=== PATIENT | female | born 1995 | race Two or more races ===

== ENCOUNTER 2019-08-29 17:45 | Emergency (ER) | payer BC ==
--- NOTE | 2019-08-29 18:04 | ER Document Report ---
ED Medical Screen (RME) - General Chief Complaint: Suicidal Ideation Stated Complaint: SUICIDAL IDEATION Time Seen by Provider: 08/29/19 18:01 Mode of Arrival: Ambulatory Information source: Patient Notes: 24-year-old female presented to ED for complaint of suicidal ideation for about the last year more so in the last 2 weeks. She states she went to her primary care doctor today who called mobile crisis. Mobile crisis called Jennifer Thornton and they told her that she needed to come to the emergency room voluntarily or they would cover it and bring her to the hospital. She states that she agreed to come in here for an assessment but she has not gone to stay after assessment. She states she does not want to take her pants off because she is on her menstrual cycle right now. She is very and upset anxious and agitated at this time. She states she does not smoke she does occasionally drink and she does not use any street drugs. She states that she has a plan but she has not gone to tell anybody what the plan is. She states she does have mental health diagnoses but she is not going to discuss them right now. She states she does live with her family and she does not work at this time. I have greeted and performed a rapid initial assessment of this patient. A comprehensive ED assessment and evaluation of the patient, analysis of test results and completion of medical decision making process will be conducted by an additional ED providers. Physical Exam - Vital signs Vitals: Temp Pulse Resp BP Pulse Ox 98.0 F 88 16 123/82 95 08/29/19 17:53 08/29/19 17:53 08/29/19 17:53 08/29/19 17:53 08/29/19 17:53 Course - Vital Signs Vital signs: Temp Pulse Resp BP Pulse Ox 98.0 F 88 16 123/82 95 08/29/19 17:53 08/29/19 17:53 08/29/19 17:53 08/29/19 17:53 08/29/19 17:53
[2019-08-29 19:04] LABS: ABSOLUTE LYMPHOCYTES (AUTO) 2.1 10^3/uL (0.5-4.7); ABSOLUTE MONOCYTES (AUTO) 0.4 10^3/uL (0.1-1.4); ABSOLUTE NEUT (AUTO) 5.4 10^3/uL (1.7-8.2); BASOPHILS % (AUTO) 0.4 % (0-2); EOSINOPHILS % (AUTO) 0.5 % (0-6); HEMATOCRIT 43.1 % (36.0-47.0); LYMPHOCYTES % (AUTO) 26.6 % (13-45); MEAN CORPUSCULAR HEMOGLOBIN 30.1 pg (27.0-33.4); MEAN CORPUSCULAR HGB CONC 34.8 g/dL (32.0-36.0); MEAN CORPUSCULAR VOLUME 87 fl (80-97); MONOCYTES % (AUTO) 5.3 % (3-13); PLATELET COUNT 276 10^3/uL (150-450); RED BLOOD COUNT 4.99 10^6/uL (3.72-5.28); RED CELL DISTRIBUTION WIDTH 13.1 % (11.5-14.0); SEGMENTED NEUTROPHILS % (AUTO) 67.2 % (42-78); TOTAL CELLS COUNTED % (AUTO) 100 %; WHITE BLOOD COUNT 8.1 10^3/uL (4.0-10.5)
[2019-08-29 19:26] LABS: ALBUMIN 4.8 g/dL (3.5-5.0); ALKALINE PHOSPHATASE 76 U/L (38-126); ANION GAP 9 (5-19); ASPARTATE AMINO TRANSFERASE 21 U/L (14-36); BILIRUBIN,TOTAL 0.5 mg/dL (0.2-1.3); BLOOD UREA NITROGEN 11 mg/dL (7-20); CALCIUM 9.5 mg/dL (8.4-10.2); CARBON DIOXIDE 25 mmol/L (22-30); CHLORIDE 104 mmol/L (98-107); GLUCOSE 92 mg/dL (75-110); TOTAL PROTEIN 7.7 g/dL (6.3-8.2)
[2019-08-29 19:27] LABS: APPEARANCE,URINE CLOUDY; BILIRUBIN,URINE NEGATIVE (NEGATIVE); COLOR,URINE YELLOW; GLUCOSE, URINE NEGATIVE (NEGATIVE); KETONES,URINE NEGATIVE (NEGATIVE); LEUKOCYTE ESTERASE,URINE TRACE (NEGATIVE); NITRITE,URINE NEGATIVE (NEGATIVE); PROTEIN,URINE 30 mg/dL (NEGATIVE)
[2019-08-29 19:27] LABS: ACETAMINOPHEN < 10 ug/mL (10-30); ALCOHOL < 10 mg/dL (NONE DETECTED); SALICYLATE < 1.0 mg/dL (2.0-20.0)
[2019-08-29 19:35] LABS: URINE AMPHETAMINES SCREEN NEGATIVE; URINE BARBITURATES SCREEN NEGATIVE; URINE BENZODIAZEPINES SCREEN NEGATIVE; URINE COCAINE SCREEN NEGATIVE; URINE MARIJUANA (THC) SCREEN NEGATIVE; URINE METHADONE SCREEN NEGATIVE; URINE PHENCYCLIDINE SCREEN NEGATIVE
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
[2019-08-29] MEDS ORDERED: ONDANSETRON 4 MG TAB.RAPDIS PO ONE (22:13)
[2019-08-29] MEDS: VENLAFAXINE HCL 37.5 MG CAP.SR.24H PO SCH (22:29)
[2019-08-29] MEDS: CHLORPROMAZINE HCL 50 MG TABLET PO SCH (22:29)
[2019-08-29] MEDS: OLANZAPINE 2.5 MG TABLET PO SCH (22:29)
[2019-08-29] MEDS: BENZTROPINE MESYLATE 1 MG TABLET PO SCH (22:30)
--- NOTE | 2019-08-29 22:47 | EKG REPORT ---
SEVERITY:- NORMAL ECG - SINUS RHYTHM : Confirmed by: Otis Saini 29-Aug-2019 22:46:14
--- NOTE | 2019-08-30 00:16 | ER Document Report ---
ED Psych Disorder / Suicide - General Chief Complaint: Psych Problem Stated Complaint: SUICIDAL IDEATION Time Seen by Provider: 08/29/19 18:01 Primary Care Provider: ZEHRA GARCIA NP-C [Primary Care Provider] - Follow up as needed Mode of Arrival: Ambulatory Notes: Patient is a 24-year-old female who comes in for suicidal ideation. Patient does not want to tell me what her plan was. Patient is currently suicidal. Was told to come in by mobile crisis. Patient is upset because she wants to do her schoolwork but states that she is indeed still suicidal. Has a history of depression and anxiety. She has never been admitted to an inpatient psychiatric unit. She is not on anything today to hurt herself. Patient states that she began feeling this way 2 weeks ago when her now ex-fianc broke up with her. - HPI Patient complains to provider of: Suicidal ideation, Suicidal plan Quality of pain: No pain Severity: None Suicide Risk Factors: Lack of social support Situational problems related to: Significant other Suicide Attempt Method: denies: Drowning, Hanging, Motor Vehicle, Overdose, Shooting, Stabbing/Cutting, Train, Other Overdose of: No: Acetominophen, Alcohol, Anticholinergic, Anti-depressants, Benzodiazepine, Salicylate, Tricyclic Antidepressant, Other Normal mood: No Associated symptoms: Agitated, Angry - Related Data Allergies/Adverse Reactions: adhesive Allergy (Verified 08/29/19 18:07) alovera Adverse Reaction (Uncoded 08/29/19 18:07) Home Medications: Effexor 150 mg daily. Albuteral inhaler. flovent Past Medical History - General Information source: Patient - Social History Smoking Status: Never Smoker Chew tobacco use (# tins/day): No Frequency of alcohol use: None Drug Abuse: None Family History: Reviewed & Not Pertinent Patient has suicidal ideation: No Patient has homicidal ideation: No Psychiatric Medical History: Reports: Hx Anxiety, Hx Depression Review of Systems - Review of Systems Constitutional: No symptoms reported EENT: No symptoms reported Cardiovascular: No symptoms reported Respiratory: No symptoms reported Gastrointestinal: No symptoms reported Genitourinary: No symptoms reported Female Genitourinary: No symptoms reported Musculoskeletal: No symptoms reported Skin: No symptoms reported Hematologic/Lymphatic: No symptoms reported Neurological/Psychological: See HPI Physical Exam - Vital signs Vitals: Temp Pulse Resp BP Pulse Ox 98.0 F 88 16 123/82 95 08/29/19 17:53 08/29/19 17:53 08/29/19 17:53 08/29/19 17:53 08/29/19 17:53 Interpretation: Normal - General General appearance: Appears well, Alert - HEENT Head: Normocephalic, Atraumatic Eyes: Normal Pupils: PERRL - Respiratory Respiratory status: No respiratory distress Chest status: Nontender Breath sounds: Normal Chest palpation: Normal - Cardiovascular Rhythm: Regular Heart sounds: Normal auscultation Murmur: No - Abdominal Inspection: Normal Distension: No distension Bowel sounds: Normal Tenderness: Nontender Organomegaly: No organomegaly - Back Back: Normal, Nontender - Extremities General upper extremity: Normal inspection, Nontender, Normal color, Normal ROM, Normal temperature General lower extremity: Normal inspection, Nontender, Normal color, Normal ROM, Normal temperature, Normal weight bearing. No: Cheryl's sign - Neurological Neuro grossly intact: Yes Cognition: Normal Orientation: AAOx4 Gissel Coma Scale Eye Opening: Spontaneous [place] Coma Scale Verbal: Oriented [place] Coma Scale Motor: Obeys Commands Giss[place] Coma Scale Total: 15 Speech: Normal Motor strength normal: LUE, RUE, LLE, RLE Sensory: Normal - Psychological Associated symptoms: Angry, Irritable, Uncooperative - Skin Skin Temperature: Warm Skin Moisture: Dry Skin Color: Normal Course - Re-evaluation Re-evalutation: 08/30/19 00:15 Patient is medically stable. She has been evaluated by mental health services and is recommended to be on an involuntary hold. Medication orders have been written based on recommendations. Patient will remain in the emergency department and be reevaluated in the morning. Blood work is normal. Patient is not . - Vital Signs Vital signs: Temp Pulse Resp BP Pulse Ox 98.0 F 88 16 123/82 95 08/29/19 17:53 08/29/19 17:53 08/29/19 17:53 08/29/19 17:53 08/29/19 17:53 - Laboratory Result Diagrams: 08/29/19 18:30 08/29/19 18:30 Laboratory results interpreted by me: 08/29/19 08/29/19 18:30 19:03 Urine Protein 30 H Urine Blood LARGE H Urine Urobilinogen 4.0 H Ur Leukocyte Esterase TRACE H Salicylates < 1.0 L Acetaminophen < 10 L Discharge - Discharge Clinical Impression: Suicidal ideation Condition: Stable Disposition: OTHER Referrals: ZEHRA GARCIA NP-C [Primary Care Provider] - Follow up as needed
[2019-08-30] MEDS: CHLORPROMAZINE HCL 50 MG TABLET PO SCH ×2 (09:36→13:39)
[2019-08-30] MEDS: OLANZAPINE 2.5 MG TABLET PO SCH (09:36)
[2019-08-30] MEDS: BENZTROPINE MESYLATE 1 MG TABLET PO SCH (09:36)
[2019-08-30] MEDS: VENLAFAXINE HCL 37.5 MG CAP.SR.24H PO SCH (09:36)
[2019-08-30 15:50] VITALS: BP 97/60
== END 2019-08-30 15:58 | disposition home or self-care (01) ==
LOC: ER 17:45
DX: R45.851 Suicidal ideations (principal); F41.9 Anxiety disorder, unspecified; F32.9 Major depressive disorder, single episode, unspecified; Z79.899 Other long term (current) drug therapy; Z63.0 Problems in relationship with spouse or partner; Z91.048 Other nonmedicinal substance allergy status
CPT/HCPCS: 93005; 99285; 36415; 80307 ×4; 84703; 85025; 80053; 81001; 93010; J3490 ×6; S0119

== ENCOUNTER 2019-09-11 20:38 | Emergency (ER) | payer BC ==
[2019-09-11 21:44] LABS: ABSOLUTE LYMPHOCYTES (AUTO) 1.8 10^3/uL (0.5-4.7); ABSOLUTE MONOCYTES (AUTO) 0.7 10^3/uL (0.1-1.4); ABSOLUTE NEUT (AUTO) 9.6 10^3/uL (1.7-8.2); BASOPHILS % (AUTO) 0.3 % (0-2); EOSINOPHILS % (AUTO) 0.3 % (0-6); HEMATOCRIT 42.3 % (36.0-47.0); LYMPHOCYTES % (AUTO) 15.1 % (13-45); MEAN CORPUSCULAR HEMOGLOBIN 30.2 pg (27.0-33.4); MEAN CORPUSCULAR HGB CONC 35.4 g/dL (32.0-36.0); MEAN CORPUSCULAR VOLUME 85 fl (80-97); MONOCYTES % (AUTO) 5.7 % (3-13); PLATELET COUNT 284 10^3/uL (150-450); RED BLOOD COUNT 4.96 10^6/uL (3.72-5.28); SEGMENTED NEUTROPHILS % (AUTO) 78.6 % (42-78); TOTAL CELLS COUNTED % (AUTO) 100 %; WHITE BLOOD COUNT 12.2 10^3/uL (4.0-10.5)
[2019-09-11 21:59] LABS: APPEARANCE,URINE CLOUDY; BILIRUBIN,URINE NEGATIVE (NEGATIVE); COLOR,URINE AMBER; GLUCOSE, URINE NEGATIVE (NEGATIVE); KETONES,URINE TRACE mg/dL (NEGATIVE); LEUKOCYTE ESTERASE,URINE MODERATE (NEGATIVE); NITRITE,URINE NEGATIVE (NEGATIVE); PROTEIN,URINE 100 mg/dL (NEGATIVE)
[2019-09-11 22:01] LABS: ALBUMIN 4.7 g/dL (3.5-5.0); ALKALINE PHOSPHATASE 76 U/L (38-126); ANION GAP 11 (5-19); ASPARTATE AMINO TRANSFERASE 18 U/L (14-36); BILIRUBIN,TOTAL 0.4 mg/dL (0.2-1.3); BLOOD UREA NITROGEN 13 mg/dL (7-20); CALCIUM 9.5 mg/dL (8.4-10.2); CARBON DIOXIDE 25 mmol/L (22-30); CHLORIDE 101 mmol/L (98-107); GLUCOSE 90 mg/dL (75-110); POTASSIUM 4.1 mmol/L (3.6-5.0); TOTAL PROTEIN 7.6 g/dL (6.3-8.2)
[2019-09-11 22:04] LABS: ACETAMINOPHEN < 10 ug/mL (10-30); ALCOHOL < 10 mg/dL (NONE DETECTED); SALICYLATE < 1.0 mg/dL (2.0-20.0)
[2019-09-11] MEDS ORDERED: ONDANSETRON HCL INJ/PF 4 MG/2 ML SDV IV ONE (22:09)
[2019-09-11] MEDS ORDERED: NORMAL SALINE 1000 ML 1,000 ML IV ONE (22:09)
[2019-09-11 22:10] LABS: URINE AMPHETAMINES SCREEN NEGATIVE; URINE BARBITURATES SCREEN NEGATIVE; URINE BENZODIAZEPINES SCREEN NEGATIVE; URINE COCAINE SCREEN NEGATIVE; URINE MARIJUANA (THC) SCREEN NEGATIVE; URINE METHADONE SCREEN NEGATIVE; URINE PHENCYCLIDINE SCREEN NEGATIVE
--- NOTE | 2019-09-11 22:12 | ER Document Report ---
ED General - General Chief Complaint: Overdose Stated Complaint: POSSIBLE OVERDOSE Time Seen by Provider: 09/11/19 21:04 Primary Care Provider: ZEHRA GARCIA NP-C [Primary Care Provider] - Follow up as needed Information source: Patient, Parent, Emergency Med Personnel TRAVEL OUTSIDE OF THE [place] IN LAST 30 DAYS: No - HPI Onset: Just prior to arrival Onset/Duration: Sudden Quality of pain: No pain Severity: Moderate Pain Level: Denies Associated symptoms: Other - Depression, Suicidal Exacerbated by: Denies Relieved by: Denies Similar symptoms previously: Yes - Patient was seen in August in this ER for suicidal thoughts Recently seen / treated by doctor: Yes - patient was seen on 08/29/19 for suicidal ideation in this ER Notes: 24 year old female with a prior history of suicidal ideation brought to the ER for an intentional overdose of her psych medications. The patient cannot tell me what medications she actually took but her mother told nursing staff she ingested an unknown quantity of Effexor. The patient is awake and alert on ER arrival and she has superficial cuts to her left wrist as well. The patient tells me she that she thinks her boyfriend is upset with her and that is why she took the medication. - Related Data Allergies/Adverse Reactions: adhesive Allergy (Verified 08/29/19 18:07) alovera Adverse Reaction (Uncoded 08/29/19 18:07) Home Medications: Benzotropine 1mg QD. Venlafaxine ER 37.5mg QD. Olanzapine 2.5mg BID Past Medical History - Social History Smoking Status: Never Smoker Frequency of alcohol use: Occasional Drug Abuse: None Lives with: Family Family History: Reviewed & Not Pertinent Patient has homicidal ideation: No Pulmonary Medical History: Reports: Hx Asthma Psychiatric Medical History: Reports: Hx Anxiety, Hx Depression - and anxiety Review of Systems - Review of Systems Constitutional: No symptoms reported EENT: No symptoms reported Cardiovascular: No symptoms reported Respiratory: No symptoms reported Gastrointestinal: Nausea Genitourinary: No symptoms reported Female Genitourinary: No symptoms reported Musculoskeletal: No symptoms reported Skin: No symptoms reported Hematologic/Lymphatic: No symptoms reported Neurological/Psychological: Depression, Suicidal ideation -: Yes All other systems reviewed and negative Physical Exam - Vital signs Vitals: Temp Pulse Resp BP Pulse Ox 98.2 F 105 H 22 H 95/74 L 99 09/11/19 20:50 09/11/19 20:50 09/11/19 20:50 09/11/19 20:50 09/11/19 20:50 - Notes Notes: GENERAL: Poorly groomed, well-nourished and in no acute distress. HEAD: Atraumatic, normocephalic. Minor trauma to face (abrasions) EYES: Pupils equal round and reactive to light, extraocular movements intact, sclera anicteric, conjunctiva are normal. ENT: External Ears normal, nares patent, oropharynx clear without exudates. Moist mucous membranes. NECK: Normal range of motion, supple without lymphadenopathy or JVD. LUNGS: Breath sounds clear to auscultation bilaterally and equal. No wheezes rales or rhonchi. HEART: Regular rate and rhythm without murmurs, rubs or gallops. ABDOMEN: Soft, nontender, normoactive bowel sounds. No guarding, no rebound. No masses appreciated. EXTREMITIES: Normal range of motion, no pitting or edema. No clubbing or cyanosis. NEUROLOGICAL: Cranial nerves II through XII grossly intact. Normal speech, normal gait. PSYCH: Depressed. Suicidal, flat affect. SKIN: Lef wrist with recent superficial cut hilliard. Warm, Dry, normal turgor, no rashes or lesions noted. Course - Re-evaluation Re-evalutation: 09/11/19 22:57 The patient attempted to overdose of Effexor. It is not clear how much she took. Poison control was called and is following along. Patient will likely be medically cleared after being held for 6 hours after arrival. Labs are unremarkable and patient has normal vital signs. Patient is awake and alert. Patient placed on IVC and psych will need to see her in the morning. - Vital Signs Vital signs: Temp Pulse Resp BP Pulse Ox 98.2 F 105 H 22 H 95/74 L 99 09/11/19 20:53 09/11/19 20:50 09/11/19 20:50 09/11/19 20:50 09/11/19 20:50 - Laboratory Result Diagrams: 09/11/19 21:20 09/11/19 21:20 Laboratory results interpreted by me: 09/11/19 09/11/19 09/11/19 21:20 21:20 21:30 WBC 12.2 H Absolute Neuts (auto) 9.6 H Seg Neutrophils % 78.6 H Urine Protein 100 H Urine Ketones TRACE H Urine Urobilinogen 2.0 H Ur Leukocyte Esterase MODERATE H Salicylates < 1.0 L Acetaminophen < 10 L - EKG Interpretation by Me EKG shows normal: Sinus rhythm, [place], Intervals, QRS Complexes, ST-T Waves Rate: Normal Rhythm: NSR Discharge - Discharge Clinical Impression: Suicidal behavior Qualifiers: Attempted self-injury: with attempted self-injury Qualified Code(s): T14.91XA - Suicide attempt, initial encounter Condition: Stable Disposition: OTHER Referrals: ZEHRA GARCIA, ANTOLIN-C [Primary Care Provider] - Follow up as needed
[2019-09-12] MEDS ORDERED: DIPHENHYDRAMINE HCL 25 MG CAPSULE PO ONE (01:32)
--- NOTE | 2019-09-12 07:11 | EKG REPORT ---
SEVERITY:- NORMAL ECG - SINUS RHYTHM : Confirmed by: Aiden Marte MD 12-Sep-2019 07:11:04
--- NOTE | 2019-09-12 07:11 | EKG REPORT ---
SEVERITY:- NORMAL ECG - SINUS RHYTHM : Confirmed by: Aiden Marte MD 12-Sep-2019 07:10:41
--- NOTE | 2019-09-12 07:11 | EKG REPORT ---
SEVERITY:- NORMAL ECG - SINUS RHYTHM : Confirmed by: Aiden Marte MD 12-Sep-2019 07:10:52
--- NOTE | 2019-09-12 07:12 | EKG REPORT ---
SEVERITY:- NORMAL ECG - SINUS RHYTHM : Confirmed by: Aiden Marte MD 12-Sep-2019 07:11:20
--- NOTE | 2019-09-12 11:43 | EKG REPORT ---
SEVERITY:- NORMAL ECG - SINUS RHYTHM : Confirmed by: Aiden Marte MD 12-Sep-2019 11:42:28
[2019-09-12] MEDS ORDERED: VENLAFAXINE HCL 37.5 MG CAP.SR.24H PO ONE (15:27)
[2019-09-12] MEDS ORDERED: BENZTROPINE MESYLATE 1 MG TABLET PO SCH (15:30)
[2019-09-12] MEDS ORDERED: VENLAFAXINE HCL 37.5 MG CAP.SR.24H PO SCH (15:30)
[2019-09-12] MEDS ORDERED: OLANZAPINE 2.5 MG TABLET ONE (16:34)
[2019-09-12 16:48] VITALS: BP 119/69
[2019-09-12] MEDS ORDERED: OLANZAPINE 5 MG TABLET PO SCH (18:00)
--- NOTE | 2019-09-13 01:12 | PSYCHOLOGICAL NOTE ---
Psych Note - Psych Note Date seen by psych provider: 09/12/19 Time seen by psych provider: 13:22 - [id number] Psych Note: Presenting Problem: Patient is a 24 year old female who presented to the [facility] ED last evening via EMS for overdose of old prescribed medication of Effexor. She was subsequently put on a 24 hour petition for evaluation by ED Physician. Patient identified "I got upset yesterday after I talked with my ex boyfriend and I just kind of lost it." She further stated "I took the medication, put it in my pocket, left the house and then swallowed the pills." She stated her parents had been outside and she saw the pills sitting on her mother's dresser. She stated her mother had her medications hidden in a place she didn't know about previously. When asked if she recalled what she was thinking or feeling after taking the medication she said "I felt kind of at peace, I was tired." When asked how she felt today and if she was glad she was alive she responded with "I feel out of it, honestly I am more concerned about a test final I have tomorrow." She denied current suicidal ideation. She acknowledged she is supposed to be in therapy currently but is not. She identified she was involved in therapy in the past and did not like it. Patient denied previous mental health hospitalizations. She stated she sees [facility] Mei Escobar at [facility] [place] [place] in [place] for her medications and had last been seen 2 weeks ago. Patient identified this was her first college boyfriend. She stated she had been romantic with other boyfriends. She acknowledged the break up happened 2-3 weeks ago. Chart review indicated she was seen by [facility] 08/29/2019 and 08/30/2019. Plan of care included medication changes: Decreased Effexor to 37.5MG QS for 5 days then discontinue/Added Zyprexa 5MG BID and Cogentin 1MG QD, mother to be in control of medications/administration and follow up with [facility] [place] [place]. [facility] had also been involved. Patient was alert and oriented to self, person, place, time and situation. Mood was euthymic with congruent affect. She denied current SI/HI and reported she took old prescription of Effexor as overdose (however lab work and vitals do not support an Effexor overdose). Patient did not appear to be responding to internal stimuli as evidenced by fair eye contact and answering questions appropriately when addressed. Conversational speech was within normal limits for rate, tone and prosody. Intellectual abilities are estimated to be average. Insight, judgment and impulse control were fair as evidenced by future/forward/goal oriented thinking with concern about test final she has tomorrow. [facility] [employer] obtained collateral (the following is copied and pasted from her note): The following collateral information was obtained from patient's mother, Maria ([phone]). Mother describes patient as controlling and rigid and elaborated on patient's disdain for substances and alcohol. Mother states a believe that patient may have taken "too old ones [Effexor]" however expressed some doubt that patient would do anything to "damage her." Mother states the Effexor that was reportedly used in a suicide attempt was left over from patient's prior hospital visit on 08/29/2019. Mother reports patient has been threatening suicidal ideation with friends and her ex-boyfriend if the ex-boyfriend did not come back. Patient's mother expressed concern because patient is not wanting to engage in any conversation regarding her trying to consider a life without her ex-boyfriend. Patient has been surrounding herself with "yes people" and not those who are encouraging her to get therapy and build a life without her ex-boyfriend. A friend from patient's school contacted [facility] [place] welfare check after patient expressed suicidal ideation. Per mother, patient informed the responding deputy that she was not a harm to herself and that she was okay. Mother reports a paternal history of bipolar disorder and "rage." Mother expressed the belief that patient is engaging in self-harm behaviors for attention in an attempt to have her ex-boyfriend come back into her life. Mother also expressed concern for frequent endorsement of suicidal ideation if patient's ex-boyfriend does not come back. Interventions: Used open ended questioning to obtain information regarding current crisis situation and past, as well as to get patient to elaborate. Challenged and confronted patient about various relationships in her life to include previous boyfriends, current friendships and family to aid in thoughts and feelings surrounding recent break up. Brainstormed areas she may need work on in therapy such as interpersonal relationships, expression of thoughts/feelings and better coping strategies. Reiterated how she mentioned concern for her test final which shows desire to do well academically which goes further into working towards a career. Provided psycho-education on individual therapy and how that is treatment where she can learn about her triggers, negative coping skills and more positive coping skills. Diagnosis: Reported Overdose of Effexor (labs and vitals do not suggest such) Psychosocial stress: Recent break up with continued communication Poor Impulse Control Depression Medication recommendations made by the psychiatric medication provider Dr. Claude MD., includes: Continue Zyprexa 5MG twice a day for mood stabilization/impulse control (paternal history of Bipolar noted) Continue Cogentin 1MG daily to curb tremor side effects often associated with antipsychotic medications Impression/Plan: Patient is cleared from acute psychiatric services. Recommendation to rescind 24 hour petition for evaluation. Patient's lab work and vitals are not consistent with reported Effexor overdose. Patient denied current SI while also endorsing future/forward/goal oriented thinking when she noted concern for her test final tomorrow. She has not been involved in recent therapy due to not liking it in the past and psychoeducation was provided to recommend and encourage individual therapy/counseling in conjunction with medication management. Patient was alert and oriented x 5 and did not display or endorse behavior that would suggest she was responding to internal stimuli. Mother included in plan of care. She provided transportation. She agreed to be in control of medications and administration more closely. An appointment was scheduled with preferred provider [facility] on 09/19/2019 at 1500 for therapy and recommended to follow up with PCM provider at [facility] [place] [place] for medication management. Patient was provided with an outpatient Mental Health resource sheet which highlighted both mobile crisis numbers and documented appointment date/time. Consulted with Dr. Bernstein regarding the management and care of patient. ED Physician in agreement with recommendations.
== END 2019-09-12 16:58 | disposition home or self-care (01) ==
LOC: ER 20:38
DX: T43.212A Poisoning by selective serotonin and norepinephrine reuptake inhibitors, intentional self-harm, initial encounter (principal); S61.512A Laceration without foreign body of left wrist, initial encounter; X58.XXXA Exposure to other specified factors, initial encounter; R11.0 Nausea; J45.909 Unspecified asthma, uncomplicated; F41.9 Anxiety disorder, unspecified; F32.9 Major depressive disorder, single episode, unspecified; Z79.899 Other long term (current) drug therapy; Z91.048 Other nonmedicinal substance allergy status
CPT/HCPCS: 93005 ×3; 99284; 96361; 96374; 36415; 87086; 80307 ×4; 85025; 81025; 80053; 81001; 93010 ×2; J2405; J7030

== ENCOUNTER 2019-09-16 22:50 | Emergency (ER) | payer BC ==
[2019-09-16 23:58] LABS: ABSOLUTE EOSINOPHILS # (AUTO) 0.1 10^3/uL (0.0-0.6); ABSOLUTE LYMPHOCYTES (AUTO) 2.4 10^3/uL (0.5-4.7); ABSOLUTE MONOCYTES (AUTO) 0.5 10^3/uL (0.1-1.4); ABSOLUTE NEUT (AUTO) 5.1 10^3/uL (1.7-8.2); BASOPHILS % (AUTO) 0.6 % (0-2); EOSINOPHILS % (AUTO) 1.2 % (0-6); LYMPHOCYTES % (AUTO) 29.6 % (13-45); MEAN CORPUSCULAR HEMOGLOBIN 30.1 pg (27.0-33.4); MEAN CORPUSCULAR VOLUME 86 fl (80-97); MONOCYTES % (AUTO) 6.2 % (3-13); PLATELET COUNT 289 10^3/uL (150-450); RED BLOOD COUNT 4.64 10^6/uL (3.72-5.28); SEGMENTED NEUTROPHILS % (AUTO) 62.4 % (42-78); TOTAL CELLS COUNTED % (AUTO) 100 %; WHITE BLOOD COUNT 8.1 10^3/uL (4.0-10.5)
[2019-09-16 23:59] LABS: ALBUMIN 4.2 g/dL (3.5-5.0); ALKALINE PHOSPHATASE 61 U/L (38-126); ANION GAP 7 (5-19); ASPARTATE AMINO TRANSFERASE 19 U/L (14-36); BILIRUBIN,TOTAL 0.3 mg/dL (0.2-1.3); BLOOD UREA NITROGEN 8 mg/dL (7-20); CALCIUM 9.3 mg/dL (8.4-10.2); CARBON DIOXIDE 26 mmol/L (22-30); CHLORIDE 104 mmol/L (98-107); GLUCOSE 100 mg/dL (75-110); TOTAL PROTEIN 6.8 g/dL (6.3-8.2)
[2019-09-17 00:01] LABS: ACETAMINOPHEN < 10 ug/mL (10-30); ALCOHOL < 10 mg/dL (NONE DETECTED); SALICYLATE < 1.0 mg/dL (2.0-20.0)
--- NOTE | 2019-09-17 01:34 | ER Document Report ---
Entered by LAZARO RAMIREZ SCRIBE 09/16/19 2340 Acting as scribe for:ROSALINDA HDEZ DO ED Psych Disorder / Suicide - General Chief Complaint: Suicidal Ideation Stated Complaint: PSYCH EVALUATION Time Seen by Provider: 09/16/19 23:41 Primary Care Provider: ZEHRA GARCIA NP-C [Primary Care Provider] - Follow up as needed Mode of Arrival: Ambulatory Information source: Patient Cannot obtain history due to: Uncooperative Notes: This 24 year old female patient presents to the emergency department today with complaints of suicidal ideation per nursing notes. Patient is completely uncooperative so history is quite limited. Nursing staff notes mention that the patient stated that she was going to "take all the pills in her house" to kill herself just prior to arrival. Patient reports that she did not do anything to harm herself prior to arrival here as her mom stopped her from doing it. Patient will only state that she is tired. She does deny pain. States that she does not want to talk to any counselors. TRAVEL OUTSIDE OF THE [place] IN LAST 30 DAYS: No - Related Data Allergies/Adverse Reactions: adhesive Allergy (Verified 09/16/19 23:05) alovera Adverse Reaction (Uncoded 09/16/19 23:05) Home Medications: benztropine, bupropion, cleocin, olanzipine, trintellix, venlafaxine Past Medical History - General Information source: [facility] Records Cannot obtain history due to: Uncooperative - Social History Smoking Status: Unknown if Ever Smoked Cigarette use (# per day): No Frequency of alcohol use: Social Drug Abuse: Prescription drugs Lives with: Other - mother per [facility] notes Family History: Reviewed & Not Pertinent Patient has homicidal ideation: No Pulmonary Medical History: Reports: Hx Asthma Psychiatric Medical History: Reports: Hx Anxiety, Hx Depression Review of Systems - Review of Systems -: Yes ROS unobtainable due to patient's medical condition - uncooperative Physical Exam - Vital signs Vitals: Temp 98.5 F 09/16/19 23:05 Interpretation: Normal - General General appearance: Appears well, Alert - HEENT Head: Normocephalic, Atraumatic Eyes: Normal Pupils: PERRL - Respiratory Respiratory status: No respiratory distress Chest status: Nontender Breath sounds: Normal Chest palpation: Normal - Cardiovascular Rhythm: Regular Heart sounds: Normal auscultation Murmur: No - Abdominal Inspection: Normal Distension: No distension Bowel sounds: Normal Tenderness: Nontender Organomegaly: No organomegaly - Back Back: Normal, Nontender - Extremities General upper extremity: Normal inspection, Nontender, Normal color, Normal ROM, Normal temperature General lower extremity: Normal inspection, Nontender, Normal color, Normal ROM, Normal temperature, Normal weight bearing. No: Cheryl's sign - Neurological Neuro grossly intact: Yes Cognition: Normal Orientation: AAOx4 [place] Coma Scale Eye Opening: Spontaneous [place] Coma Scale Verbal: Oriented [place] Coma Scale Motor: Obeys Commands [place] Coma Scale Total: 15 Speech: Normal Motor strength normal: LUE, RUE, LLE, RLE Sensory: Normal - Psychological Associated symptoms: Flat affect, Uncooperative - Skin Skin Temperature: Warm Skin Moisture: Dry Skin Color: Normal Course - Re-evaluation Re-evalutation: 09/17/19 01:31 Patient is medically stable. Apparently suicidal with plan to overdose. Will be held on involuntary commitment papers and can be evaluated by mental health in the morning. Patient has been uncooperative with exam but otherwise medically stable. Care will be transitioned to Dr. Steiner. - Vital Signs Vital signs: Temp Pulse Resp BP Pulse Ox 98.5 F 09/16/19 23:05 - Laboratory Result Diagrams: 09/16/19 22:11 09/16/19 22:11 Laboratory results interpreted by me: 09/16/19 22:11 Salicylates < 1.0 L Acetaminophen < 10 L Discharge - Discharge Clinical Impression: Suicidal ideation Condition: Stable Disposition: OTHER Referrals: ZEHRA GARCIA, VIDEO SPECIALIST-C [Primary Care Provider] - Follow up as needed I personally performed the services described in the documentation, reviewed and edited the documentation which was dictated to the scribe in my presence, and it accurately records my words and actions.
--- NOTE | 2019-09-17 08:42 | EKG REPORT ---
SEVERITY:- NORMAL ECG - SINUS RHYTHM : Confirmed by: Aiden Marte MD 17-Sep-2019 08:41:43
[2019-09-17 11:06] LABS: AMORPHOUS SEDIMENT,URINE TRACE /HPF; APPEARANCE,URINE TURBID; BILIRUBIN,URINE NEGATIVE (NEGATIVE); COLOR,URINE AMBER; GLUCOSE, URINE NEGATIVE (NEGATIVE); KETONES,URINE NEGATIVE (NEGATIVE); LEUKOCYTE ESTERASE,URINE MODERATE (NEGATIVE); NITRITE,URINE NEGATIVE (NEGATIVE); PROTEIN,URINE 30 mg/dL (NEGATIVE); UROBILINOGEN,URINE NEGATIVE mg/dL (<2.0)
[2019-09-17 11:13] LABS: URINE AMPHETAMINES SCREEN NEGATIVE; URINE BARBITURATES SCREEN NEGATIVE; URINE COCAINE SCREEN NEGATIVE; URINE MARIJUANA (THC) SCREEN NEGATIVE; URINE METHADONE SCREEN NEGATIVE; URINE PHENCYCLIDINE SCREEN NEGATIVE
[2019-09-17 11:16] LABS: URINE BENZODIAZEPINES SCREEN UNCONFIRMED POSITIVE
[2019-09-17 13:33] VITALS: BP 120/74
--- NOTE | 2019-09-17 18:22 | ER Document Report ---
Entered by LAZARO RAMIREZ SCRIBE 09/17/19 1737 Acting as scribe for:ROSALINDA HDEZ DO Doctor's Note Notes: 09/17/19 17:34 NAD. AVSS. No issues today. Patient will remain on IVC paperwork. Medically stable. Will be transported to [facility] by law enforcement within the hour. Stable for transport. No psychiatric services available at this facility. 09/17/19 18:21 Law enforcement here in transporting patient. Patient not cooperative but is complying with leaving. Offered medications for anxiety. Patient refused. I personally performed the services described in the documentation, reviewed and edited the documentation which was dictated to the scribe in my presence, and it accurately records my words and actions.
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
== END 2019-09-17 18:34 | disposition other institution (70) ==
LOC: ER 22:50
DX: R45.851 Suicidal ideations (principal)
CPT/HCPCS: 36415; 80053; 80307; 81001; 81025; 84703; 85025; 93005; 93010; 99285